=== PATIENT | female | born 1970 | race Caucasian/White ===

== ENCOUNTER 2017-11-18 10:32 | Emergency (ER) | payer OTHER ==
[~2017-11-18] VITALS: Ht 152.4 cm; Wt 75.5 kg
[2017-11-18 10:43] VITALS: BP 123/56
[2017-11-18] MEDS ORDERED: AMOX-580 PO (12:51)
[2017-11-18] MEDS ORDERED: amox tr/potassium clavulanate 875/125mg TAB PO ONE (13:10)
== END 2017-11-18 13:48 | disposition home or self-care (01) ==
LOC: ER 10:33
DX: L03.115 Cellulitis of right lower limb (principal); S91.331A Puncture wound without foreign body, right foot, initial encounter; E10.9 Type 1 diabetes mellitus without complications; Z88.0 Allergy status to penicillin; Z79.899 Other long term (current) drug therapy; W54.0XXA Bitten by dog, initial encounter; Y93.89 Activity, other specified; Y92.89 Other specified places as the place of occurrence of the external cause; Y99.8 Other external cause status
CPT/HCPCS: 73630; 99284

== ENCOUNTER 2021-10-30 16:03 | Emergency (ER) | payer OTHER ==
[~2021-10-30] VITALS: Ht 152.4 cm; Wt 70.5 kg
[2021-10-30 16:58] VITALS: BP 129/67
[2021-10-30 18:11] LABS: CLARITY,URINE CLEAR (Clear); COLOR,URINE YELLOW (Yellow); GLUCOSE, URINE NEGATIVE (Neg); KETONES,URINE NEGATIVE (Neg); LEUKOCYTE ESTERASE ,URINE NEGATIVE (Neg); NITRITES, URINE NEGATIVE (Neg); OCCULT BLOOD,URINE TRACE-INTACT (Neg); PH,URINE 5.5 (4.8-8.0); PROTEIN,URINE TRACE mg/dl (Neg); UROBILINOGEN,URINE 0.2 E.U/dL (0.2-1.0)
[2021-10-30 18:13] LABS: UA COLLECTION TYPE CLN CATCH MIDSTREAM
[2021-10-30 18:34] LABS: BACTERIA,URINE NONE SEEN /HPF (Neg); RBC,URINE 0-2 /HPF (0-2); SQUAMOUS EPITHELIAL CELL,UR NONE SEEN /LPF (FEW); WBC,URINE NONE SEEN /HPF (0-4)
== END 2021-10-30 20:03 | disposition left against medical advice (07) ==
LOC: ER 16:04
DX: M54.9 Dorsalgia, unspecified (principal); Z53.21 Procedure and treatment not carried out due to patient leaving prior to being seen by health care provider
CPT/HCPCS: 81001